=== PATIENT | male | born 2000 | race Caucasian/White ===

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

== ENCOUNTER 2020-05-25 12:22 | Emergency (ER) | payer MEDICAID ==
[~2020-05-25] VITALS: Ht 195 cm; Wt 63.5 kg
[~2020-05-25 12:22] MED LIST: CLON-445; ERGO50006; HYDR-3781; LOXA50CA; MELA10TA2 PO; MONT10TA32; OMEP40CA27; OXCA600T10; TOPI100T11
--- NOTE | 2020-05-25 14:24 | ED Head Injury ---
General Chief Complaint: General Problems/Pain Stated Complaint: R HAND LAC/SWOLLEN POSSIBLY BROKEN Nursing Triage Note: from [facility], facility reports pt had manic episode at day service. prior to arrival pt hit a pole and is complaining of right hand pain. Source: patient Exam Limitations: no limitations (EMY GUZMAN) History of Present Illness Date Seen by Provider: May 25, 2020 Time Seen by Provider: 14:17 Initial Comments Rito is a 19 y/o male that arrived to the ER via his nurse from the [facility], where he states he is a resident. His chief complaint is a right hand injury, specifically the middle knuckle 2/2 to punching a light pole. He states he was having a manic episode this morning. He states his pain is very minimal and he rarely feels pain to begin with. Movement and Sensation are still intact, but he states it does feel different. He has not taken anything for the pain and denies any radiation of pain up the arm. He has injured this hand before when he punched a brick, but denies every having it checked out or having surgery on it. He feels his manic episode has resolved and is taking his medication. He has a local PCP, but cannot remember his/her name and was being worked up outpatient for back issues. Denies Chest pain, SOB, abdominal pain, other injuries or abrasions, F/C, N/V at this time. Occurred: this morning Severity: mild Method of Injury: direct blow Loss of Consciousness: no loss of consciousness Associated Systoms: Denies Symptoms (EMY GUZMAN) Allergies and Home Medications Allergies Coded Allergies: dexamethasone (Verified Allergy, Unknown, "NOT GOOD", 03/09/17) Patient Home Medication List Home Medication List Reviewed: Yes (CHRISSY WONG) Review of Systems Review of Systems Constitutional: no symptoms reported Eyes: No Symptoms Reported Ears, Nose, Mouth, Throat: no symptoms reported Respiratory: no symptoms reported Cardiovascular: no symptoms reported Gastrointestinal: no symptoms reported Genitourinary: no symptoms reported Musculoskeletal: back pain (chronic and being worked up outpatient), other (hand swelling and minimal pain of the right hand ) Skin: no symptoms reported Psychiatric/Neurological: No Symptoms Reported Endocrine: No Symptoms Reported Hematologic/Lymphatic: No Symptoms Reported (EMY GUZMAN) Past Adwbvom-Qkofxn-Vtvlpn Hx Patient Social History Alcohol Use: Denies Use Smoking Status: Current Everyday Smoker Recent Infectious Disease Expo: No Recent Hopitalizations: No (EMY GUZMAN) Immunizations Up To Date PED Vaccines UTD: Yes (EMY GUZMAN) Past Medical History Surgeries: No Respiratory: No Cardiac: No Neurological: No Genitourinary: No Gastrointestinal: No Musculoskeletal: No Endocrine: No HEENT: No Cancer: No Psychosocial: Yes (AUTISM AND TOURETTES, ACTING OUT BEHAVIOR) Sleep Difficulties, Bipolar (EMY GUZMAN) Physical Exam Vital Signs Vital Signs - First Documented 05/25/20 05/25/20 13:09 13:36 Temp 37.3 Pulse 78 Resp 20 B/P (MAP) 144/82 (102) Pulse Ox 100 (CHRISSY WONG) Vital Signs Capillary Refill : Less Than 3 Seconds (EMY GUZMAN) Height, Weight, BMI Height: 6'3.00" Weight: 275lbs. oz. 124.202380wl; 16.00 BMI Method:Stated General Appearance: WD/WN, no apparent distress Neck: full range of motion Cardiovascular: regular rate, rhythm, no edema Respiratory: chest non-tender, no respiratory distress, no accessory muscle use Gastrointestinal: non tender, soft Back: other Extremities: no calf tenderness, swelling, other (Flexion and extention intact in the right hand, sensation intact to light touch, stregth in the right hand and middle finger slightly weaker then left. Swelling and eccymosis noted on the middle knuckle. ) Psychiatric: alert (EMY GUZMAN) Progress/Results/Core Measures Results/Orders My Orders Orders - CHRISSY WONG Hand, Right, 3 Views (05/25/20 14:37) (CHRISSY WONG) Vital Signs/I&O 05/25/20 05/25/20 05/25/20 13:09 13:36 15:04 Temp 37.3 37.3 37.3 37.3 Pulse 78 78 78 Resp 20 20 20 B/P (MAP) 144/82 (102) 144/82 (102) Pulse Ox 100 100 100 (CHRISSY WONG) Blood Pressure Mean: 102 Progress Progress Note : Time: 14:27 Progress Note will obtain xray of the right hand. Head injury note was inadvertently selected, there is NO HEAD injury. (EMY GUZMAN) Progress Note : Progress Note I attest that I saw this patient alongside the medical student and agree with his documented history, physical exam and review of systems except as otherwise noted. Self-inflicted trauma by punching a wall. Suspect possible boxer's fracture. X-ray of the right hand. He says he is headed on ice for the past 3 hours and declined anything for pain. (CHRISSY WONG) Diagnostic Imaging Diagonstic Imaging: Xray Plain Films/CT/US/NM/MRI: hand (Right) Comments No acute osseous abnormality [facility], [place] NAME: RITO MANN [facility] REC#: [id number] PT STATUS: DEP ER : 2000 PHYSICIAN: CHRISSY WONG MD ADMIT DATE: 05/25/20/ER Signed Date of Exam:05/25/20 HAND, RIGHT, 3 VIEWS INDICATION: Punching injury, bleeding. FINDINGS: Three views of the right hand show soft tissue swelling dorsally over the distal metacarpal seen in the lateral view. A fracture, however, cannot be identified. There is no dislocation. IMPRESSION: Soft tissue swelling but no fracture or retained opaque foreign body is apparent. Dictated by: Dictated on workstation # [id number] Dict: 05/25/20 1455 Trans: 05/25/20 1648 [id number] Interpreted by: RACQUEL ROSE Electronically signed by: RACQUEL ROSE 05/25/20 1648 Reviewed: Reviewed by Me (CHRISSY WONG) Departure Impression Primary Impression: Traumatic hematoma of right hand Qualified Codes: S60.221A - Contusion of right hand, initial encounter Disposition: 01 HOME, SELF-CARE Condition: Stable Departure-Patient Inst. Decision time for Depature: 14:54 (CHRISSY WONG) Referrals: NO,LOCAL PHYSICIAN (PCP/Family) Primary Care Physician Patient Instructions: HEMATOMA Add. Discharge Instructions: You have broken a blood vessel in your hand which is causing all the swelling. There does not appear to be a fracture on the x-ray. Would put you in a splint to protect the hand and gave you some gentle compression to reduce the swelling for the next week. You should also keep the hand elevated above the level of your heart when not in use. For the next 2 to 3 days you should use ice for 20 minutes every 2 hours. Tylenol 1000 mg every 8 hours as necessary for pain. Ibuprofen 800 mg every 8 hours as necessary for pain. Follow-up with your primary care doctor in 7 to 10 days for reexamination if you are still having pain or swelling. Alternatively if your hand is better you may stop wearing the splint in a week. All discharge instructions reviewed with patient and/or family. Voiced understanding. Work/School Note: Work Release Form Date Seen in the Emergency Department: May 25, 2020 Return to Work: May 26, 2020 Restrictions: Need Release from Doctor Other Restrictions Listed Below: Right hand in splint until 06/01/2020. EMY GUZMAN MED STUDEN May 25, 2020 14:24 CHRISSY WONG May 25, 2020 14:47
--- NOTE | 2020-05-25 15:01 | Diagnostic Imaging Report ---
INDICATION: Punching injury, bleeding. FINDINGS: Three views of the right hand show soft tissue swelling dorsally over the distal metacarpal seen in the lateral view. A fracture, however, cannot be identified. There is no dislocation. IMPRESSION: Soft tissue swelling but no fracture or retained opaque foreign body is apparent. Dictated by: Dictated on workstation # [id number]
[2020-05-25 15:04] VITALS: BP 144/82
== END 2020-05-25 15:04 | disposition home or self-care (01) ==
LOC: EDUNIT# 12:22 → ER 12:24
DX: S60.221A Contusion of right hand, initial encounter (principal); F30.9 Manic episode, unspecified; F17.200 Nicotine dependence, unspecified, uncomplicated; Z79.899 Other long term (current) drug therapy; Z88.8 Allergy status to other drugs, medicaments and biological substances; W22.8XXA Striking against or struck by other objects, initial encounter; Y92.129 Unspecified place in nursing home as the place of occurrence of the external cause
CPT/HCPCS: 73130